=== PATIENT | male | born 1955 | race Caucasian/White ===

== ENCOUNTER 2019-11-26 14:25 | Outpatient (CLI) | payer BC ==
--- NOTE | 2019-11-27 15:39 | MRI ---
MRI OF PELVIS WITH AND WITHOUT CONTRAST PROSTATE PROTOCOL: HISTORY: Prostate cancer. Staging. COMPARISON: None. FINDINGS: PROSTATE: The prostate measures 3.8 x 4.2 x 3.9 cm for a volume of approximately 32 mL. PERIPHERAL ZONE: There is no abnormal foci of markedly increased signal on high DWI nor marked low signal on ADC. TRANSITIONAL ZONE: No abnormal lentiform focal area of low T2 signal. LYMPH NODES: No local regional adenopathy. BONES: On the T1 weighted imaging sequence, there are no abnormal foci of marrow signal replacement to sugge st osseous metastatic disease. INTRAPELVIC SOFT TISSUES: Moderate diverticular disease of the sigmoid colon. IMPRESSION: 1. PIRADS category 2: low (clinically significant prostate cancer is unlikely to be present), even w ith a history of positive biopsy. 2. Intact neurovascular bundles and prostatic capsule. 3. Intact seminal vesicles and urinary bladder. 4. No evidence for local regional osseous or lymphatic metastatic disease. 5. Moderate diverticular disease of the sigmoid colon without active current inflammation. POS: HOME
== END 2019-11-26 14:26 | disposition home or self-care (01) ==
LOC: TBSIIMAG 14:25
DX: C61 Malignant neoplasm of prostate (principal); R03.0 Elevated blood-pressure reading, without diagnosis of hypertension; K57.30 Diverticulosis of large intestine without perforation or abscess without bleeding
CPT/HCPCS: 72197; 82565